=== PATIENT | female | born 1990 | race Caucasian/White ===

== ENCOUNTER 2016-07-17 13:32 | Emergency (ER) | payer OTHER ==
[~2016-07-17] VITALS: Ht 154.9 cm; Wt 111.0 kg
[~2016-07-17 13:32] MED LIST: CLON.1 PO; DESE1CRE TOP; LISI10 PO; METF500 PO; MIRTA15 PO; PROT40TA PO
[2016-07-17 13:33] VITALS: BP 167/89; PULSE 114; RESP 16; TEMP 98.3; O2SAT 99
--- NOTE | 2016-07-17 13:40 | PD ---
Physical Exam Date Seen by Provider: Jul 17, 2016 Time Seen by Provider: 13:36 Narrative Pt was at [facility] and was sent to the ED for evaluation of high blood pressure. Pt reports a frontal headache, her pain is a 4/10. This is not the worst headache of her life. Pt was at [facility] for med refill for depression meds. Pt reports hx of HTN, not currently taking meds. Pt was on lisinopril. Pt has a history of diabetes and is not on meds for this either. LMP 1 month ago. Pt denies any CP, SOB. Pt mildly tachycardic. Data Data Last Documented VS Vital Signs Date Time Temp Pulse Resp B/P Pulse Ox O2 Delivery O2 Flow Rate FiO2 07/17/16 13:33 98.3 114 16 167/89 99 MDM Supervised Visit with CHRIS: Rachell Blakely Jul 17, 2016 13:40
--- NOTE | 2016-07-17 13:45 | PD ---
HPI Chief Complaint: Hypertension Time Seen by Provider: 13:45 Travel History International Travel<30 days: No Contact w/Intl Traveler<30days: No Traveled to known affect area: No History of Present Illness HPI 26 year-old female history of nature depressive disorder and hypertension, currently not on her medication, presents to the emergency department today for medication refill. Patient was seen and evaluated at [facility] and provided her psychiatric medications and was advised to come to the emergency department due to her blood pressure reading there. Patient states that she has been feeling well. She denies any current symptoms. No headache, focal deficits or weakness, or blurred vision. She denies any chest pain or tightness. She has been out of medication for an unknown amount of time. She is uncertain of her dosage. [facility] Past Medical History Anxiety: Yes Depression: Yes Cardiovascular Problems: Yes (HTN) Cerebrovascular Accident: No Diabetes: Yes Hypertension: Yes Myocardial Infarction: No ?: Not LMP: LATE MAY 2016 Past Surgical History Tonsillectomy: Yes Social History Alcohol Use: Yes (OCCASIONAL) Tobacco Use: No Substance Use: No Allergies-Medications (Allergen,Severity, Reaction): Coded Allergies: No Known Allergies (Unverified , 07/17/16) Reported Meds & Prescriptions Reported Meds & Active Scripts Active Lisinopril 10 Mg Tab 10 Mg PO DAILY Protonix (Pantoprazole Sodium) 40 Mg Tab 40 Mg PO DAILY 30 Days Clotrimazole 1 % Cre 1 Applic TOP BID 28 Days Mirtazapine 15 Mg Tab 15 Mg PO HS Glucophage 500 mg (Metformin HCl) 500 Mg Tab 500 Mg PO BIDPC Prinivil 10 mg (Lisinopril) 10 Mg Tab 10 Mg PO DAILY Catapres (Clonidine HCl) 0.1 Mg Tab 0.1 Mg PO BID Review of Systems Except as stated in HPI: all other systems reviewed are Neg Physical Exam Narrative GENERAL: Well-nourished, well-developed email patient, ambulatory and in no acute distress SKIN: Focused skin assessment warm/dry. HEAD: Normocephalic. EYES: No scleral icterus. No injection or drainage. NECK: Supple, trachea midline. No JVD or lymphadenopathy. CARDIOVASCULAR: Tachycardic rate and rhythm without murmurs, gallops, or rubs. RESPIRATORY: Breath sounds equal bilaterally. No accessory muscle use. GASTROINTESTINAL: Abdomen soft, non-tender, nondistended. MUSCULOSKELETAL: No cyanosis, or edema. BACK: Nontender without obvious deformity. No CVA tenderness. Data Data Last Documented VS Vital Signs Date Time Temp Pulse Resp B/P Pulse Ox O2 Delivery O2 Flow Rate FiO2 07/17/16 14:02 18 98 07/17/16 14:02 99 158/99 Room Air 07/17/16 13:33 98.3 Orders Lisinopril (Prinivil) (07/17/16 14:00) [facility] Medical Decision Making Medical Screen Exam Complete: Yes Emergency Medical Condition: Yes Medical Record Reviewed: Yes Differential Diagnosis Hypertension versus hypertension urgency versus medication noncompliance versus medication refill versus normal examination Narrative Course 26 year-old female presents to emergency department for evaluation, requesting refill of her antihypertensive. Patient appears well and without distress. She has slightly tachycardic but is without any other symptoms. She appears well. Discussed the patient with Dr. Villalba. Patient will be given a refill of her antihypertensive. She is strongly encouraged to establish care with primary care provider and to return immediately with any acute worsening symptoms. Diagnosis Primary Impression: HTN (hypertension) Qualified Code: I10 - Essential hypertension Additional Impression: Medication refill Referrals: Primary Care Physician Patient Instructions: General Instructions, Hypertension (ED) Additional Instructions: It is important that you establish care with a primary care provider for follow- up with your hypertension and medication refills Lisinopril is free at [facility] Return immediately with any acute worsening of symptoms Med/Other Pt SpecificInfo: Prescription(s) given Scripts Lisinopril 10 Mg Tab10 Mg PO DAILY #30 TAB Ref 0 Prov:Rosalinda Escobedo 07/17/16 Disposition: 01 DISCHARGE HOME Condition: Stable Rosalinda Escobedo Jul 17, 2016 13:45
[2016-07-17] MEDS ORDERED: LISI10TA3 PO (13:51)
[2016-07-17] MEDS ORDERED: LISINOPRIL 10 MG TAB PO ONE (14:00)
[2016-07-17 14:02] VITALS: BP 158/99; PULSE 99; O2SAT 66
[2016-07-24] MEDS ORDERED: METF1000 PO (10:26)
[2016-07-24] MEDS ORDERED: LISI-515 PO (10:26)
[2016-07-24] MEDS ORDERED: SERT-132 PO (10:28)
[2016-07-24] MEDS ORDERED: LORA-474 PO (10:28)
[2016-07-24] MEDS ORDERED: TERB1CRE11 TOPICAL (10:31)
[2016-07-24] MEDS ORDERED: TERB250T4 PO (10:31)
[2016-07-24] MEDS ORDERED: BETA0.0557 TOPICAL (10:35)
== END 2016-07-17 14:18 | disposition home or self-care (01) ==
LOC: NEPD 13:32
DX: I10 Essential (primary) hypertension (principal); Z76.0 Encounter for issue of repeat prescription
CPT/HCPCS: 99283